=== PATIENT | female | born 1990 | race African-American/Black ===

== ENCOUNTER 2020-06-29 09:19 | Emergency (ER) | payer SELFPAY ==
[~2020-06-29] VITALS: Ht 168.9 cm; Wt 52.4 kg
[2020-06-29 09:47] LABS: BILIRUBIN,URINE NEGATIVE (NEG); CLARITY,URINE CLEAR; COLOR,URINE YELLOW; NITRITE,URINE NEGATIVE (NEG); PROTEIN,URINE NEGATIVE (NEG-TRACE)
--- NOTE | 2020-06-29 09:54 | PHYS DOC ---
Past Medical History Past Medical History: No Pertinent History Past Surgical History: No Surgical History Smoking Status: Current Every Day Smoker Additional Information: 2 cigarettes daily Alcohol Use: None Social History Narrative: denies use, smells strongly of marijuana General Adult EDM: Chief Complaint: ABDOMINAL PAIN IN HPI: HPI: History gained from patient. Patient is a 29-year-old female G1, P0 who presents with complaint of lower abdominal cramping that began yesterday. States the pain began gradually. She notes first day of her last menstrual was 1 month ago. States she did have a positive at-home test 5 days ago. She states the following day she developed nausea and presented to her primary care physician who prescribed Zofran. He has not tried any medication help with her discomfort. Denies any vaginal bleeding or discharge. Denies syncope. Denies vomiting currently. Denies chest pain or shortness of breath. Denies dysuria or hematuria. Does endorse tobacco abuse. Nothing makes the pain better or worse. No other complaints. Review of Systems: Review of Systems: Constitutional: Denies fever or chills. [] Eyes: Denies change in visual acuity. [] HENT: Denies nasal congestion or sore throat. [] Respiratory: Denies cough or shortness of breath. [] Cardiovascular: Denies chest pain or edema. [] GI: Positive for abdominal pain nausea : Denies dysuria. [] Musculoskeletal: Denies back pain or joint pain. [] Integument: Denies rash. [] Neurologic: Denies headache, focal weakness or sensory changes. [] Endocrine: Denies polyuria or polydipsia. [] Lymphatic: Denies swollen glands. [] Psychiatric: Denies depression or anxiety. [] Heart Score: Risk Factors: Risk Factors: DM, Current or recent (<one month) smoker, HTN, HLP, family history of CAD, obesity. Risk Scores: Score 0 - 3: 2.5% MACE over next 6 weeks - Discharge Home Score 4 - 6: 20.3% MACE over next 6 weeks - Admit for Clinical Observation Score 7 - 10: 72.7% MACE over next 6 weeks - Early Invasive Strategies Allergies: Allergies: Allergies Coded Allergies Type Severity Reaction Last Updated Verified No Known Drug Allergies 06/29/20 No Physical Exam: PE: Constitutional: Well developed, well nourished, no acute distress, non-toxic appearance. [] HENT: Normocephalic, atraumatic, bilateral external ears normal, oropharynx moist, no oral exudates, nose normal. [] Eyes: PERRLA, EOMI, conjunctiva normal, no discharge. [] Neck: Normal range of motion, no tenderness, supple, no stridor. [] Cardiovascular:Heart rate regular rhythm, no murmur [] Lungs & Thorax: Bilateral breath sounds clear to auscultation [] Abdomen: Soft, nontender, nonacute abdomen. No involuntary guarding or rigidity noted. No acute peritonitis. Skin: Warm, dry, no erythema, no rash. [] Back: No tenderness, no CVA tenderness. [] Extremities: No tenderness, no cyanosis, no clubbing, ROM intact, no edema. [] Neurologic: Alert and oriented X 3, normal motor function, normal sensory function, no focal deficits noted. [] Psychologic: Affect normal, judgement normal, mood normal. [] Current Patient Data: Labs: Laboratory Tests Test 06/29/20 09:26 POC Urine HCG, Qualitative Hcg positive (Negative) Vital Signs: Vital Signs Date Time Temp Pulse Resp B/P (MAP) Pulse Ox O2 Delivery O2 Flow Rate FiO2 06/29/20 09:30 98.8 88 16 113/64 (80) 98 Room Air 98.8 EKG: EKG: [] Radiology/Procedures: Radiology/Procedures: [facility] [address] [place] [address] IMAGING REPORT Signed PATIENT: RANDELL PAYNE ACCOUNT: [id number] : 1990 LOCATION: ER AGE: 29 SEX: F EXAM STATUS: REG ER ORD. PHYSICIAN: ELZBIETA LOOMIS DO REASON: abdominal pain. eval for IUP PROCEDURE: OB <14 WKS W/TV First trimester obstetrical ultrasound 06/29/2020. Reason for exam: Pain. Transabdominal and transvaginal scanning was performed. Transvaginal scanning was added to better visualize the early . Initial scanning was done transabdominally showing a normal size uterus with small fluid-filled structure in the endometrial lining suggesting gestational sac. The left ovary cannot be seen. The right ovary contains a simple appearing cyst measuring 2.2 cm. There is blood flow in the ovary. There is a small amount of free fluid without visible adnexal mass. Transvaginal scanning again shows a fluid-filled thick-walled structure in the endometrial lining consistent with gestational sac. This appears to contain a yolk sac, but no clear-cut pole. Estimated age by mean sac diameter would be 5 weeks 5 days. The left ovary is shown transvaginal and appears normal. IMPRESSION: There appears to be a small gestation in the uterus. No embryo is clearly seen at this point, although it could be too early based on mean sac diameter. Follow-up ultrasound in one week may be useful. Electronically signed by: Vero Freitas Jr., MD (06/29/2020 12:52 PM) [id number] DICTATED and SIGNED BY: VERO FREITAS Jr, MD DATE: 06/29/20 [id number] 0 [] Course & Med Decision Making: Course & Med Decision Making Pertinent Labs and Imaging studies reviewed. (See chart for details) [] Patient is a 29-year-old female who presents with complaint of abdominal cramping over the past 24 hours. Abdominal exam overall very benign. Denies any vaginal complaints therefore pelvic exam was deferred. Ultrasound does reveal an intrauterine gestational sac. Yolk sac and pole cannot be identified. Hormone level approximately 6000. Likely secondary to early gestational age. On repeat examination she continues to deny any vaginal bleeding. Abdomen is very benign without any reproducible tenderness. Overall do feel she is appropriate for discharge home. Type and screen deferred given she has no bleeding. Range of labs unremarkable. She will be treated for a potential UTI as well. She was instructed to have her hCG levels redrawn in 2 days. Strict return precautions were discussed and understood. Patient stable for discharge home at this time. Dragon Disclaimer: Dragon Disclaimer: This electronic medical record was generated, in whole or in part, using a voice recognition dictation system. Departure Departure Impression: Primary Impression: Abdominal pain affecting Disposition: 01 DC HOME SELF CARE/HOMELESS Condition: STABLE Referrals: SINDY BROWN MD Patient Instructions: Abdominal Pain During Additional Instructions: Please have hCG redrawn in 2 days. Please follow-up with your primary care physician and [facility] early next week. Scripts Cephalexin (KEFLEX) 500 Mg Capsule 1 CAP PO BID for 5 Days, #10 CAP 0 Refills Prov: ELZBIETA LOOMIS DO 06/29/20 ELZBIETA LOOMIS DO Jun 29, 2020 09:53
[2020-06-29 10:06] LABS: BACTERIA,URINE FEW /HPF (0-FEW); RBC,URINE 0 /HPF (0-2)
[2020-06-29 10:26] LABS: BASO # 0.1 x10^3/uL (0.0-0.2); BASO % 1 % (0-3); EOS # 0.2 x10^3/uL (0.0-0.7); EOS % 2 % (0-3); HEMATOCRIT 41.2 % (36.0-47.0); HEMOGLOBIN 14.2 g/dL (12.0-15.5); LYMPH # 1.7 x10^3/uL (1.0-4.8); LYMPH % 21 % (24-48); MEAN CORPUSCULAR HEMOGLOBIN 31 pg (25-35); MEAN CORPUSCULAR HGB CONC 34 g/dL (31-37); MEAN CORPUSCULAR VOLUME 89 fL (79-100); MONO # 0.7 x10^3/uL (0.0-1.1); MONO % 9 % (0-9); NEUT # 5.4 x10^3/uL (1.8-7.7); NEUT % 67 % (31-73); PLATELET COUNT 242 x10^3/uL (140-400); RED BLOOD COUNT 4.62 x10^6/uL (3.50-5.40); RED CELL DISTRIBUTION WIDTH 13.3 % (11.5-14.5)
[2020-06-29 10:37] LABS: CALCIUM 8.6 mg/dL (8.5-10.1); CREATININE 0.8 mg/dL (0.6-1.0); GFR 84.8; POTASSIUM 3.5 mmol/L (3.5-5.1)
[2020-06-29 10:43] LABS: ALBUMIN 3.6 g/dL (3.4-5.0); TOTAL BILIRUBIN 1.2 mg/dL (0.2-1.0); TOTAL PROTEIN 7.2 g/dL (6.4-8.2)
[2020-06-29] MEDS ORDERED: CEPHALEXIN 250 MG CAPSULE. PO ONE (11:15)
[2020-06-29 12:36] VITALS: BP 115/53
--- NOTE | 2020-06-29 12:55 | RAD ---
First trimester obstetrical ultrasound 06/29/2020. Reason for exam: Pain. Transabdominal and transvaginal scanning was performed. Transvaginal scanning was added to better visualize the early . Initial scanning was done transabdominally showing a normal size uterus with small fluid-filled structure in the endometrial lining suggesting gestational sac. The left ovary cannot be seen. The right ovary contains a simple appearing cyst measuring 2.2 cm. There is blood flow in the ovary. There is a small amount of free fluid without visible adnexal mass. Transvaginal scanning again shows a fluid-filled thick-walled structure in the endometrial lining consistent with gestational sac. This appears to contain a yolk sac, but no clear-cut pole. Estimated age by mean sac diameter would be 5 weeks 5 days. The left ovary is shown transvaginal and appears normal. IMPRESSION: There appears to be a small gestation in the uterus. No embryo is clearly seen at this point, although it could be too early based on mean sac diameter. Follow-up ultrasound in one week may be useful. Electronically signed by: Keenan Freitas Jr., MD (06/29/2020 12:52 PM) [id number]
[2020-06-29] MEDS ORDERED: CEPH-264 PO (13:40)
== END 2020-06-29 13:45 | disposition home or self-care (01) ==
LOC: ER 09:19
DX: O26.891 Other specified pregnancy related conditions, first trimester (principal); R10.30 Lower abdominal pain, unspecified; O99.331 Smoking (tobacco) complicating pregnancy, first trimester; F17.210 Nicotine dependence, cigarettes, uncomplicated; Z3A.01 Less than 8 weeks gestation of pregnancy
CPT/HCPCS: 36415; 76801; 76817; 80053; 81001; 81025; 83690; 84702; 85025; 87086; 99285-25